=== PATIENT | female | born 1985 ===

== ENCOUNTER 2020-05-22 10:25 | Emergency (ER) | payer OTHER ==
[~2020-05-22] VITALS: Ht 294.6 cm; Wt 68.0 kg
[~2020-05-22 10:25] MED LIST: POM (MEDICAMENTO EN PHA) PO; PROMETHAZINE 25 MG/ML PO; PROTONIX40 M1 PO; REGLAN IV; ZOFRAN 2 MG/ML PO
== END 2020-05-22 18:56 | disposition home or self-care (01) ==
LOC: ER 10:25
DX: K51.80 Other ulcerative colitis without complications (principal); Z03.818 Encounter for observation for suspected exposure to other biological agents ruled out

== ENCOUNTER 2022-05-31 10:17 | Inpatient (IN) | payer OTHER ==
[~2022-05-31] VITALS: Ht 160 cm; Wt 155.6 kg
[2022-05-31] MEDS ORDERED: LIALDA1.2 GM (10:47)
--- NOTE | 2022-05-31 10:51 | NUR ---
PTE ALERTA Y ORIENTADA EN CLIVE HELEN ESFERAS, REFIERE VOMITOS X 3 EN LA MANANA DE HOY, DOLOR ABDOMINAL Y SANGRADO AL EVACUAR COLOR QUINTERO BRILLANTE QUE LE COMENZO HACE 4 CORREA. PTE REFIERE HX DE COLITIS. SE UBICA EN AREA DE OBSERVACION.
--- NOTE | 2022-05-31 12:20 | NUR ---
SE EDUCA FAMILIAR SOBRE EL [place] MEDICO Y ESTA REFIERE ENTENDER. SE CANALIZA Y SE ADMINITRA MEDS JACQUIE ORDEN MEDICA. SE JONH MUESTRAS DE CARMELA Y SE ENVIAN
[2022-06-03] MEDS ORDERED: PREDNISONE20 MG PO (16:55)
[2022-06-03] MEDS ORDERED: MECLIZINE HCL25 MG PO (16:55)
[2022-06-03] MEDS ORDERED: PANTOPRAZOLE SO40 MG PO (16:55)
[2022-06-03] MEDS ORDERED: AMOX-CLAV 875-1 EACH PO (16:55)
== END 2022-06-03 17:10 | disposition home or self-care (01) | DRG 386 ==
LOC: ER 10:17 → MEDJ 18:56
PROVIDERS: ADMIT Internal Medicine; ATTEND Internal Medicine
PROC: BW21YZZ Computerized Tomography (CT Scan) of Abdomen and Pelvis using Other Contrast (ICD-10-PCS; principal; 2022-05-31)
DX: K51.80 Other ulcerative colitis without complications (principal); K92.2 Gastrointestinal hemorrhage, unspecified; D72.828 Other elevated white blood cell count